=== PATIENT | male | born 1955 | race African-American/Black ===

== ENCOUNTER → 2018-02-28 | Outpatient (CLI) | payer BC ==
[~2018-02-28] MED LIST: AMLODIPINE-BEN1 EAC5 PO; ASPIR-LOW81 MG PO; CENTRUM MEN'S1 EACH PO; FLOMAX0.4 MG PO; HUMALOG MI100 UNIT/5 SC; HUMALOG MI100 UNIT/5 SQ; HYDROCHLOROTH12.5 M3 PO; KLOR-CON; KLOR-CON 1010 ME1 PO; LO-DOSE ASPIRIN81 M2 PO; MICROZIDE12.5 M1 PO; NITROSTAT0.4 MG SL; OMEPRAZOLE20 MG PO; PROSCAR5 MG PO; ZENPEP DR 15,01 EACH PO; ZOCOR; ZOCOR40 MG PO; ZOCOR5 MG PO
== END | disposition home or self-care (01) ==
LOC: CDC 08:48
DX: Z01.810 Encounter for preprocedural cardiovascular examination (principal); K43.0 Incisional hernia with obstruction, without gangrene; I48.91 Unspecified atrial fibrillation; R94.31 Abnormal electrocardiogram [ECG] [EKG]
CPT/HCPCS: 93000

== ENCOUNTER 2018-03-21 02:48 | Inpatient (IN) | payer BC ==
[~2018-03-21] VITALS: Ht 182.9 cm; Wt 120.2 kg
[~2018-03-21 02:48] MED LIST changes: -OMEPRAZOLE20 MG PO; +OMEPRAZOLE40 M1 PO
[2018-03-21 03:16] LABS: HEMATOCRIT 39.1 % (38.0-50.0); HEMOGLOBIN 13.5 G/DL (12.5-16.6); MCH 31.3 PG (29.0-34.0); MCHC 34.5 G/DL (30.0-36.0); MCV 90.5 FL (86-99); PLATELET COUNT 243 K/uL (156-360); RBC DIS.WIDTH-CV 15.5 % (11.8-14.6); RBC DIS.WIDTH-SD 51.8 % (39-53); RED BLOOD COUNT 4.32 M/uL (4.00-5.50); WHITE BLOOD COUNT 15.3 K/uL (4.1-10.2)
[2018-03-21 03:26] LABS: CHLORIDE 106 mEq/L (99-109); POTASSIUM 3.5 mEq/L (3.7-5.4); SODIUM 141 mEq/L (136-147)
[2018-03-21 03:28] LABS: GLUCOSE 173 mg/dL (70-99)
[2018-03-21 03:29] LABS: TOTAL PROTEIN 7.7 g/dL (6.4-8.3)
[2018-03-21 03:30] LABS: TOTAL BILIRUBIN 0.6 mg/dL (0.0-1.0)
[2018-03-21 03:32] LABS: ALKALINE PHOSPHATASE 116 IU/L (3-129); CREATININE 1.1 mg/dL (0.6-1.3); GFR ESTIMATE (CALCULATED) > 59 mL/min/ (58.99-99999)
[2018-03-21 03:33] LABS: UREA NITROGEN (BUN) 17 mg/dL (9-23)
[2018-03-21 03:34] LABS: AST (GOT) 12 IU/L (2-34)
[2018-03-21 03:35] LABS: ALT (GPT) 11 IU/L (3-49)
[2018-03-21 03:36] LABS: LIPASE 19 U/L (1.0-51.0)
[2018-03-21 04:24] LABS: APPEARANCE SL.HAZY ((CLEAR)); BILIRUBIN NEGATIVE; BLOOD NEGATIVE; COLOR YELLOW ((YELLOW)); GLUCOSE (STRIP) NEGATIVE; KETONES 20; LEUKOCYTES NEGATIVE; NITRITE NEGATIVE; PROTEIN (STRIP) 30; SPECIFIC GRAVITY 1.017 (1.000-1.030)
[2018-03-21 04:30] LABS: BACTERIA RARE /HPF; EPITHELIAL CELLS NONE SEEN /HPF; MUCUS NONE SEEN /LPF; UCUL ADDED? NO; WHITE BLOOD CELLS 0-5 /HPF (0-5)
[2018-03-21 13:57] VITALS: BP 145/86
[2018-03-21 16:06] VITALS: BP 138/90
[2018-03-21 19:33] VITALS: BP 130/80
[2018-03-21 23:39] VITALS: BP 148/79
[2018-03-22] VITALS (9 sets, daily range): BP systolic 117–168; BP diastolic 57–90
[2018-03-22 06:26] LABS: HEMOGLOBIN 12.6 G/DL (12.5-16.6); MCHC 34.1 G/DL (30.0-36.0); MCV 90.9 FL (86-99); PLATELET COUNT 230 K/uL (156-360); RBC DIS.WIDTH-CV 15.8 % (11.8-14.6); RBC DIS.WIDTH-SD 52.8 % (39-53); RED BLOOD COUNT 4.07 M/uL (4.00-5.50); WHITE BLOOD COUNT 21.1 K/uL (4.1-10.2)
[2018-03-22 06:37] LABS: CHLORIDE 106 MEQ/L (99-109); CREATININE 0.9 MG/DL (0.6-1.3); GFR ESTIMATE (CALCULATED) > 59 mL/min/ (58.99-99999); GLUCOSE 125 mg/dL (70-99); SODIUM 138 MEQ/L (136-147); UREA NITROGEN (BUN) 15 mg/dL (9-23)
[2018-03-22 06:41] LABS: POTASSIUM 4.5 MEQ/L (3.7-5.4)
[2018-03-22] MEDS ORDERED: ASPIR-LOW81 MG PO (11:35)
[2018-03-23 04:30] VITALS: BP 130/62
[2018-03-23 07:04] LABS: HEMATOCRIT 36.4 % (38.0-50.0); HEMOGLOBIN 12.6 G/DL (12.5-16.6); MCH 31.4 PG (29.0-34.0); MCHC 34.6 G/DL (30.0-36.0); MCV 90.8 FL (86-99); PLATELET COUNT 228 K/uL (156-360); RBC DIS.WIDTH-CV 15.6 % (11.8-14.6); RBC DIS.WIDTH-SD 51.8 % (39-53); RED BLOOD COUNT 4.01 M/uL (4.00-5.50); WHITE BLOOD COUNT 18.3 K/uL (4.1-10.2)
[2018-03-23 07:25] LABS: CHLORIDE 102 MEQ/L (99-109); CREATININE 0.8 MG/DL (0.6-1.3); GFR ESTIMATE (CALCULATED) > 59 mL/min/ (58.99-99999); GLUCOSE 132 mg/dL (70-99); POTASSIUM 3.9 MEQ/L (3.7-5.4); SODIUM 133 MEQ/L (136-147); UREA NITROGEN (BUN) 11 mg/dL (9-23)
[2018-03-23 11:22] VITALS: BP 148/77
[2018-03-23 16:32] VITALS: BP 112/68
[2018-03-23 19:15] VITALS: BP 142/82
[2018-03-24] VITALS (7 sets, daily range): BP systolic 126–146; BP diastolic 69–77
[2018-03-24 05:56] LABS: HEMATOCRIT 35.6 % (38.0-50.0); HEMOGLOBIN 11.9 G/DL (12.5-16.6); MCH 30.5 PG (29.0-34.0); MCHC 33.4 G/DL (30.0-36.0); MCV 91.3 FL (86-99); PLATELET COUNT 236 K/uL (156-360); RBC DIS.WIDTH-CV 15.6 % (11.8-14.6); RBC DIS.WIDTH-SD 51.5 % (39-53); WHITE BLOOD COUNT 15.2 K/uL (4.1-10.2)
[2018-03-24 06:26] LABS: CHLORIDE 106 MEQ/L (99-109); CREATININE 0.8 MG/DL (0.6-1.3); GFR ESTIMATE (CALCULATED) > 59 mL/min/ (58.99-99999); GLUCOSE 118 mg/dL (70-99); POTASSIUM 4.2 MEQ/L (3.7-5.4); SODIUM 139 MEQ/L (136-147); UREA NITROGEN (BUN) 11 mg/dL (9-23)
[2018-03-25 03:19] VITALS: BP 122/68
[2018-03-25 06:58] LABS: HEMATOCRIT 35.2 % (38.0-50.0); HEMOGLOBIN 11.8 G/DL (12.5-16.6); MCH 30.5 PG (29.0-34.0); MCHC 33.5 G/DL (30.0-36.0); PLATELET COUNT 237 K/uL (156-360); RBC DIS.WIDTH-CV 15.5 % (11.8-14.6); RBC DIS.WIDTH-SD 51.8 % (39-53); RED BLOOD COUNT 3.87 M/uL (4.00-5.50); WHITE BLOOD COUNT 11.6 K/uL (4.1-10.2)
[2018-03-25 07:28] LABS: CHLORIDE 104 MEQ/L (99-109); CREATININE 0.8 MG/DL (0.6-1.3); GFR ESTIMATE (CALCULATED) > 59 mL/min/ (58.99-99999); GLUCOSE 125 mg/dL (70-99); SODIUM 138 MEQ/L (136-147); UREA NITROGEN (BUN) 10 mg/dL (9-23)
[2018-03-25 07:46] VITALS: BP 137/93
[2018-03-25 12:13] VITALS: BP 122/85
[2018-03-25 15:52] VITALS: BP 117/56
[2018-03-25 19:22] VITALS: BP 140/77
[2018-03-25 23:21] VITALS: BP 125/58
[2018-03-26 08:21] VITALS: BP 129/62
[2018-03-26] MEDS ORDERED: OXYCODONE HCL5 MG PO (12:09)
== END 2018-03-26 13:37 | disposition home or self-care (01) | DRG 330 ==
LOC: EME 02:48 → EDOF 04:54 → 3EAST 04:54 → ENRESERV 05:26 → 3EAST 13:53
PROVIDERS: Surgery
PROC: 0DBA0ZZ Excision of Jejunum, Open Approach (ICD-10-PCS; principal; 2018-03-21)
PROC: 0DNW0ZZ Release Peritoneum, Open Approach (ICD-10-PCS; principal; 2018-03-21)
PROC: 0WUF0JZ Supplement Abdominal Wall with Synthetic Substitute, Open Approach (ICD-10-PCS; principal; 2018-03-21)
DX: K43.0 Incisional hernia with obstruction, without gangrene (principal); K66.0 Peritoneal adhesions (postprocedural) (postinfection); E10.9 Type 1 diabetes mellitus without complications; I10 Essential (primary) hypertension; E87.6 Hypokalemia; E78.5 Hyperlipidemia, unspecified; K56.7 Ileus, unspecified; E66.9 Obesity, unspecified; F10.21 Alcohol dependence, in remission; E87.1 Hypo-osmolality and hyponatremia; K21.9 Gastro-esophageal reflux disease without esophagitis; Z68.35 Body mass index [BMI] 35.0-35.9, adult; Z90.81 Acquired absence of spleen; Z90.411 Acquired partial absence of pancreas; Z82.49 Family history of ischemic heart disease and other diseases of the circulatory system; Z86.73 Personal history of transient ischemic attack (TIA), and cerebral infarction without residual deficits
CPT/HCPCS: 74177; 80048; 80053; 81003; 82948; 83690; 85027; 88307; 99281; 99285; C1781; C9113; J0131; J0330; J1100; J1170; J1650; J1815; J2250; J2270; J2405; J3010; J3480; J7030; J7120; S0074

== ENCOUNTER 2018-04-14 19:42 | Inpatient (IN) | payer BC ==
[~2018-04-14] VITALS: Ht 182.9 cm; Wt 118.6 kg
[~2018-04-14 19:42] MED LIST changes: +OXYCODONE HCL5 MG PO
[2018-04-14 21:53] LABS: BASOPHIL (%) 0.4 % (0-1); BASOPHIL COUNT 0.1 K/uL (0-0.1); EOSINOPHIL (%) 1.7 % (0-5); EOSINOPHIL COUNT 0.3 K/uL (0-0.3); HEMATOCRIT 36.7 % (38.0-50.0); HEMOGLOBIN 12.6 G/DL (12.5-16.6); IMMATURE GRANULOCYTE (%) 0.5 % (0.0-0.7); LYMPHOCYTE COUNT 2.1 K/uL (1.0-2.8); MCH 31.5 PG (29.0-34.0); MCHC 34.3 G/DL (30.0-36.0); MCV 91.8 FL (86-99); MONOCYTE (%) 11.5 % (3-12); MONOCYTE COUNT 1.8 K/uL (0-0.8); NEUTROPHIL (%) 72.9 % (45-76); NEUTROPHIL COUNT 11.7 K/uL (1.8-6.4); PLATELET COUNT 245 K/uL (156-360); RBC DIS.WIDTH-CV 16.1 % (11.8-14.6); RBC DIS.WIDTH-SD 54.6 % (39-53)
[2018-04-14 22:01] LABS: CHLORIDE 108 mEq/L (99-109); SODIUM 144 mEq/L (136-147)
[2018-04-14 22:03] LABS: GLUCOSE 85 mg/dL (70-99)
[2018-04-14 22:07] LABS: GFR ESTIMATE (CALCULATED) > 59 mL/min/ (58.99-99999)
[2018-04-14 22:08] LABS: UREA NITROGEN (BUN) 15 mg/dL (9-23)
[2018-04-14] MEDS ORDERED: SHINGRIX V50 MCG/0.5 IM (23:36)
[2018-04-14] MEDS ORDERED: TYLENOL EXTRA500 MG PO (23:36)
[2018-04-15 02:18] VITALS: BP 137/79
[2018-04-15 04:49] VITALS: BP 121/63
[2018-04-15 06:12] LABS: HEMATOCRIT 35.4 % (38.0-50.0); MCH 31.1 PG (29.0-34.0); MCHC 33.9 G/DL (30.0-36.0); MCV 91.7 FL (86-99); PLATELET COUNT 220 K/uL (156-360); RBC DIS.WIDTH-CV 16.1 % (11.8-14.6); RBC DIS.WIDTH-SD 54.2 % (39-53); RED BLOOD COUNT 3.86 M/uL (4.00-5.50); WHITE BLOOD COUNT 12.4 K/uL (4.1-10.2)
[2018-04-15 06:38] LABS: CHLORIDE 106 MEQ/L (99-109); CREATININE 0.9 MG/DL (0.6-1.3); GFR ESTIMATE (CALCULATED) > 59 mL/min/ (58.99-99999); GLUCOSE 171 mg/dL (70-99); POTASSIUM 3.9 MEQ/L (3.7-5.4); SODIUM 140 MEQ/L (136-147); UREA NITROGEN (BUN) 13 mg/dL (9-23)
[2018-04-15 07:48] VITALS: BP 123/76
[2018-04-15 10:23] VITALS: BP 129/81
[2018-04-15 11:57] LABS: HEMOGLOBIN A1c (GLYCOHEMOGLOB) 6.2 % (Below 5.7)
[2018-04-15 16:36] VITALS: BP 127/76
[2018-04-15 23:52] VITALS: BP 115/67
[2018-04-16 07:39] VITALS: BP 129/69
[2018-04-16] MEDS ORDERED: AUGMENTIN875 MG PO (08:09)
[2018-04-16 10:50] VITALS: BP 123/68
== END 2018-04-16 11:09 | disposition home or self-care (01) | DRG 863 ==
LOC: EXP 19:42 → EME 19:42 → EDOF 04-15 → ENRESERV 04-15 00:10 → 3EAST 04-15 02:03
PROVIDERS: Physician Assistant; Surgery
PROC: 0J983ZX Drainage of Abdomen Subcutaneous Tissue and Fascia, Percutaneous Approach, Diagnostic (ICD-10-PCS; principal; 2018-04-15)
DX: T81.4XXA Infection following a procedure, initial encounter (principal); L02.211 Cutaneous abscess of abdominal wall; L76.34 Postprocedural seroma of skin and subcutaneous tissue following other procedure; Y83.8 Other surgical procedures as the cause of abnormal reaction of the patient, or of later complication, without mention of misadventure at the time of the procedure; E10.9 Type 1 diabetes mellitus without complications; E66.9 Obesity, unspecified; Z68.35 Body mass index [BMI] 35.0-35.9, adult; I10 Essential (primary) hypertension; E78.5 Hyperlipidemia, unspecified; K21.9 Gastro-esophageal reflux disease without esophagitis; N40.0 Benign prostatic hyperplasia without lower urinary tract symptoms; Z86.73 Personal history of transient ischemic attack (TIA), and cerebral infarction without residual deficits; F10.11 Alcohol abuse, in remission
CPT/HCPCS: 10030; 74177; 80048; 80202; 82948; 83036; 83605; 85025; 85027; 87040; 87070; 87075; 87076; 87077; 87147; 87186; 87205; 99281; 99285; J2543; J3010; J3370; J3480; J7050; J7120; S0030